=== PATIENT | female | born 2005 | race Two or more races ===

== ENCOUNTER 2024-10-15 22:16 | Emergency (ER) | payer MEDICAID, SELFPAY ==
[2024-10-15 22:17] VITALS: BMI 27.3
[2024-10-15 22:45] VITALS: BP 143/92; PULSE 101; RESP 19; TEMP 36.7; O2SAT 100
--- NOTE | 2024-10-15 23:06 | XR_ITS ---
Examination: Pelvic ultrasound, transabdominal, complete Technique: Transabdominal ultrasound of the pelvis performed using grayscale imaging Date and time of exam: October 15, 2024 0052 hrs. Indications: Onset pelvic pain beginning 2 hours ago Findings: Uterus 8.6 x 3.3 x 5.3 cm Endometrial stripe 0.5 cm No uterine mass or intrauterine gestation Right ovary obscured by bowel gas Left ovary 2.5 x 1.4 x 1.6 cm arterial flow No fluid in the cul-de-sac Impression: No uterine mass or intrauterine gestation Right ovary not visualized Normal left ovary
--- NOTE | 2024-10-15 23:07 | PD.EDRME ---
Rapid Medical Screening Exam [facility] Arrival date/time: 10/15/24 22:16 19F with no significant PMH presents to ED with 1 hour of gen ab/pelvic pain. Patient denies dysuria, vaginal bleeding, diarrhea, constipation, and N/V. Chief Complaint: Abdominal Pain Vital signs: Vital Signs Temperature 98.1 F 10/15/24 22:45 Pulse Rate 101 H 10/15/24 22:45 Respiratory Rate 19 10/15/24 22:45 Blood Pressure 143/92 H 10/15/24 22:45 Pulse Oximetry (%) 100 10/15/24 22:45 Oxygen Delivery Method Room Air 10/15/24 22:45
[2024-10-16 00:01] LABS: Basophils % (Auto) 0 % (0-2.5); Eosinophils # (Auto) 0.2 Thou/mm3 (0.0-0.5); Eosinophils % (Auto) 2 % (0-10); Hematocrit 36.1 % (36.0-46.0); Hemoglobin 12.3 g/dL (12.0-16.0); Immature Granulocytes % (Auto) 0 % (0-0); Immature Granulocytes Auto 0.02 Thou/mm3 (0.00-0.00); Lymphocytes # (Auto) 2.7 Thou/mm3 (1.0-4.8); Lymphocytes % (Auto) 33 % (10-50); Mean Corpuscular HGB Conc 34.1 g/dl (31.0-37.0); Mean Corpuscular Hemoglobin 28.6 pg (25.0-35.0); Mean Corpuscular Volume 84 fL (80-100); Monocytes # (Auto) 0.9 Thou/mm3 (0.0-0.8); Monocytes % (Auto) 10 % (0-12); Neutrophils # (Auto) 4.4 Thou/mm3 (1.8-7.7); Neutrophils % (Auto) 54 % (37-80); Nucleated Red Blood Cell % 0 /100 WBC (0); Platelet Count 381 Thou/mm3 (140-440); RDW Standard Deviation 38.1 fL (36.4-46.3); White Blood Count 8.2 Thou/mm3 (3.6-11.0)
[2024-10-16 00:02] LABS: Collection Type, Urine Clean Catch; RBC,Urine 0 /hpf (0-3)
[2024-10-16 00:28] LABS: Amphetamine/Methamp Scrn,U Negative (Negative); Barbiturate Screen,Urine Negative (Negative); Benzodiazepines Screen,Urine Negative (Negative); Benzoylecgonine Screen, Ur Negative (Negative); Fentanyl Screen,Urine Negative (Negative); Opiate Screen,Urine Negative (Negative); THC Screen,Urine Negative (Negative)
[2024-10-16 00:32] LABS: Alanine Aminotransferase 27 U/L (10-49); Albumin, Serum 4.2 gm/dL (3.5-5.0); Albumin/Globulin Ratio 1.6 (1.2-2.2); Alkaline Phosphatase 66 U/L (46-116); Anion Gap 6 (7-16); Aspartate Amino Transferase 25 U/L (0-34); BUN/Creatinine Ratio 14 Ratio (12-20); Bilirubin,Total 0.4 mg/dL (0.3-1.2); Blood Urea Nitrogen 7 mg/dL (9-23); Calcium 9.2 mg/dL (8.3-10.6); Calcium (Corrected) 9.2 mg/dL (8.5-10.1); Carbon Dioxide 26.6 mMol/L (20.0-31.0); Chloride 105 mMol/L (98-107); Creatinine (Component) 0.5 mg/dL (0.6-1.3); Estimated Creatinine Clearance 199.5 mL/min (>60); Globulin 2.6 gm/dL (2.3-3.5); Glucose 96 mg/dL (74-106); Lipase 44 U/L (12-53); Osmolality,Calculated 273 (275-295); Potassium 3.5 mMol/L (3.4-5.1); Sodium 138 mMol/L (136-145); Total Protein 6.8 gm/dL (5.7-8.2); eGFR > 60 See Note
[2024-10-16 00:32] LABS: Bacteria,Urine Rare; Bilirubin,Urine Negative (Negative); Blood,Urine Negative (Negative); Clarity,Urine Clear (Clear/Hazy); Color,Urine Yellow (Lt Yel-Yel); Glucose, Urine Negative (Negative); Ketones,Urine Negative (Negative); Leukocyte Esterase,Urine Positive (Negative); Nitrite,Urine Negative (Negative); Protein,Urine Negative (Neg - Trace); Specific Gravity,Urine 1.012 (1.001-1.035); Squamous Epithelial Cell,Urine 3 /hpf (0-5); Urobilinogen,Urine Negative mg/dL (0.0-1.0); WBC,Urine 4 /hpf (0-5)
[2024-10-16 00:43] LABS: HCG Qualitative,Urine Negative
[2024-10-16 00:53] VITALS: BP 118/78; PULSE 87; RESP 18; TEMP 36.8; O2SAT 99
[2024-10-16 02:05] VITALS: BP 134/94; PULSE 99; RESP 18; TEMP 36.8; O2SAT 100
--- NOTE | 2024-10-16 02:09 | PRELIM_ITS ---
Pelvic ultrasound (transabdominal) with Doppler. October 15, 2024 0052 hours Clinical history: Pelvi c pain. LMP 09/29/2024. HCG negative. Findings:The uterus is normal in size measuring 8.6 x 3.3 x 5.3 cm. The endometrium measures 0.5 cm. No intrauterine gestational sac is seen at this time. The right ovary is not visualized. The left ovary measures 2.5 x 1.4 x 1.6 cm. The left ovary demonstrates col or flow and spectral waveforms on Doppler evaluation. No adnexal mass is demonstrated.There is no faby e fluid.Impression:No evidence of intrauterine gestation. Possibilities include very early intrauteri ne , recent or occult ectopic gestation. Recommend correlation with serum beta hCG and follow up. Report Electronically Signed By: Gordon Perez 10/16/2024 2:08:55 AM [EST]
[2024-10-16 03:25] VITALS: BP 134/71; PULSE 76; RESP 18; TEMP 36.6; O2SAT 100
--- NOTE | 2024-10-16 03:30 | PC.NURSE ---
At this time, pt is alert/oriented x3. Respirations are even and unlabored. No s/s of acute distress noted. Call light within reach. Plan of care ongoing.
--- NOTE | 2024-10-16 04:16 | PD.EDABDPN ---
ED Abdominal Pain RME/HPI General Chief Complaint: Abdominal Pain Stated complaint: ABD PAIN Arrival date/time: 10/15/24 22:16 Limitations: no limitations RME / HPI RME / HPI narrative: 10/15/24 22:16 19F with no significant PMH presents to ED with 1 hour of gen ab/pelvic pain. Patient denies dysuria, vaginal bleeding, diarrhea, constipation, and N/V. ----- Dr. Beckwith's Main ED Evaluation: 19-year-old female coming in with abdominal pain cramping that started 1 hour prior to arrival. The patient states it started on its own. She states her period started 2 weeks ago. It is sharp without radiation. No dysuria or vaginal bleeding. Patient denies any vaginal discharge and does not believe she has an STD. She has a single partner. No nausea vomiting or diarrhea. No fevers. No similar pain in the past. Related Data Home Medications ?Medication ?Instructions ?Recorded ?Confirmed No Known Home Medications 10/16/24 10/16/24 Allergies Allergy/AdvReac Type Severity Reaction Status Date / Time Penicillins Allergy Mild Verified 03/14/17 19:13 Review of Systems Review of Systems Systems Reviewed: All systems reviewed, normal except as documented Past Medical History Past Medical History CARDIAC: Negative Congestive Heart Failure RESPIRATORY: Negative Chronic Obstructive Pulmonary Disease (COPD) GENITOURINARY: Negative Renal Disease ENDOCRINE: Negative Diabetes Mellitus Type 1 or Diabetes Mellitus Type 2 Social History SMOKING STATUS: Never smoker ED Exam General Limitations: Present no limitations General appearance: Present alert and in no apparent distress Head Head exam: Present atraumatic Eye Eye exam: Present normal appearance, PERRL and EOMI ENT ENT exam: Present normal exam, normal oropharynx and mucous membranes moist Neck Neck exam: Present normal inspection and trachea midline Chest Chest inspection: Present normal inspection and symmetric chest wall rise Respiratory Respiratory exam: Present normal lung sounds bilaterally Cardiovascular Cardiovascular exam: Present regular rate, normal rhythm and normal heart sounds Abdominal Exam Abdominal exam: Present soft and normal bowel sounds Extremities Exam Extremities exam: Absent pedal edema Back Exam Back exam: Present normal inspection and full ROM Neurological Exam Neurological exam: Present alert, oriented X3 and CN II-XII intact Psychiatric Psychiatric exam: Present normal affect and normal mood Skin Skin exam: Present warm, dry, intact and normal color Course Quality Measures none Orders Category Date Time Status US pelvic complete Stat Exams 10/15/24 23:06 Taken CBC Stat Lab 10/15/24 23:45 Completed CMP [Comprehensive Metabolic Panel] Stat Lab 10/15/24 23:45 Completed Drug Screen,Urine Stat Lab 10/15/24 23:35 Completed HCG Qualitative,Urine Stat Lab 10/15/24 23:35 Completed Lipase Stat Lab 10/15/24 23:45 Completed UA [Urinalysis] Stat Lab 10/15/24 23:35 Completed Ketorolac Inj [Toradol Inj] Med 10/16/24 04:26 Discontinued 30 mg IM X1 ONE Vital Signs Vital signs: Vital Signs Temperature 98.1 F 10/15/24 22:45 Pulse Rate 101 H 10/15/24 22:45 Respiratory Rate 19 10/15/24 22:45 Blood Pressure 143/92 H 10/15/24 22:45 Pulse Oximetry (%) 100 10/15/24 22:45 Oxygen Delivery Method Room Air 10/15/24 22:45 Pulse ox is 100% on room air, which is normal according to my interpretation. Abdominal Pain MDM MDM Narrative MDM Narrative:: Differential diagnosis includes pelvic cyst, gas, epigastric pain, gallbladder disease, UTI. This patient has a benign abdomen and at this time her pain is only been present for a few hours. I do not believe that she needs a CT scan. She is not vomiting and has no fever. Patient can return in 12-24 hours if she is still having pain. Otherwise she should drink fluids to stay hydrated. She can take [id number] Tylenol and or Motrin. Return precautions given understood. Patient data External records reviewed:: [facility] previous records (Per chart review, patient has no previous ED visits or admissions to this facility.) Clinical information provided by:: patient Social determinants that could affect healthcare access:: none Patient has the following chronic illnesses:: none How is presenting disease/condition affected by chronic disease/condition?: no chronic disease Evaluation data The following diagnostics were reviewed and interpreted by me:: lab results and radiology exam(s) Lab and/or radiology exams considered but not ordered:: none Interpretation Summary: CBC is normal, CMP is normal, Lipase is normal, UA is unremarkable, HCG is negative, UDS is negative, according to my interpretation. ---- Telerad Preliminary Report Draft Patient: HALEY MCDONALD [facility]. Record#: [id number] Birthdate: 2005 Age/Sex: 19 / F Location: [facility] Attending Dr: Ordering Physician: Date of Service: Procedure(s): Accession Number(s): cc: ~ Pelvic ultrasound (transabdominal) with Doppler. October 15, 2024 0052 hours Clinical history: Pelvic pain. LMP 09/29/2024. HCG negative. Findings: The uterus is normal in size measuring 8.6 x 3.3 x 5.3 cm. The endometrium measures 0.5 cm. No intrauterine gestational sac is seen at this time. The right ovary is not visualized. The left ovary measures 2.5 x 1.4 x 1.6 cm. The left ovary demonstrates color flow and spectral waveforms on Doppler evaluation. No adnexal mass is demonstrated. There is no free fluid. Impression: No evidence of intrauterine gestation. Possibilities include very early intrauterine , recent or occult ectopic gestation. Recommend correlation with serum beta hCG and follow up. Report Electronically Signed By: Gordon Perez 10/16/2024 2:08:55 AM [EST] Medications / Prescriptions Medications or Prescriptions considered but not ordered:: none Medication administrations:: Medication Administration History Discontinued Medications Ketorolac Tromethamine (Ketorolac Inj 60 Mg/2 Ml Vial) 30 mg IM X1 ONE Stop: 10/16/24 04:27 Last Admin: 10/16/24 04:30 Dose: 30 mg Documented By: CCT see above, if any Consultations Consultation(s) initiated? (list below): No Diagnosis Differential diagnosis abdominal pain: other (pelvic cyst, gas, epigastric pain, gallbladder disease, UTI) Most likely diagnosis given after review of the tests above:: see below Admission Indicated Admission indicated?: not indicated Admission Request Was there a request for admission?: No Disposition Plan Disposition Plan: Discharge Discharge Attestation Discharge Attestation: The patient and all family members were given an opportunity to ask questions and understood the discharge instructions. Discharge instructions specifically effects, indications for sooner follow up or return to the emergency department, and the expected course of current diagnosis. Patient condition: Stable Discharge Plan Plan Patient Disposition: HOME (Self Care) Patient condition on transfer: Stable Prescriptions/Referrals Prescriptions/Med Rec: No Action No Known Home Medications Referrals: No Primary/Family,Physician [Primary Care Provider] - In 1 week Problem List Clinical Impression: Abdominal cramping Patient/Caregiver Discharge Instructions Education Materials: Abdominal Pain Additional Instructions: Please return to emergency department for worsening symptoms or any other concerns you can take [id number] Tylenol and or Motrin as needed for pain. Return sooner if you cannot drink fluids have fever, or any other concern Print Language: Vincentian Stand Alone Forms: Juhi Award Info., Patient Portal Info Letter
[2024-10-16 04:19] VITALS: BP 136/70; PULSE 84; RESP 18; TEMP 36.7; O2SAT 100
[2024-10-16] MEDS: KETOROLAC INJ 60 MG/2 ML VIAL 30 MG IM (04:30)
[2024-10-16 04:50] VITALS: BP 109/79; PULSE 80; RESP 18; TEMP 36.6; O2SAT 100
== END 2024-10-16 04:50 | disposition home or self-care (01) ==
PROVIDERS: Physician Assistant; Emergency Provider Emergency Medicine
DX: R10.2 Pelvic and perineal pain (principal)
CPT/HCPCS: 36415; 76856; 80053; 80307; 81001; 81025; 83690; 85025; 96372; 99284; J1885